=== PATIENT | female | born 1960 | race African-American/Black ===

== ENCOUNTER 2018-10-24 16:19 | Emergency (ER) | payer MEDICAID ==
[~2018-10-24] VITALS: Ht 177.8 cm; Wt 91.0 kg
[2018-10-24 16:37] VITALS: BP 136/84
== END 2018-10-24 17:29 | disposition left against medical advice (07) ==
LOC: ER 17:00
DX: R53.1 Weakness (principal); Z53.21 Procedure and treatment not carried out due to patient leaving prior to being seen by health care provider